=== PATIENT | female | born 1990 | race Caucasian/White ===

== ENCOUNTER 2022-01-05 14:23 | Inpatient (IN) | payer BC ==
[~2022-01-05 14:23] MED LIST: Bupivacaine 0.25% 10 ML SDV ONE
[2022-01-05] MEDS: Lactated Ringers 1,000 ML IV SCH ×2 (15:45→16:23)
[2022-01-05] MEDS ORDERED: ePHEDrine 50 MG/ML SDV IVPUSH PRN (16:00)
[2022-01-05] MEDS ORDERED: Nalbuphine HCl 10 MG/ 1ML Amp IVPUSH PRN (16:00)
[2022-01-05] MEDS ORDERED: diphenhydrAMINE 50 MG/ML SDV IVPUSH PRN (16:00)
[2022-01-05] MEDS ORDERED: fentaNYL 100 MCG/2 ML SDV EPIDUR PRN (16:00)
[2022-01-05] MEDS ORDERED: Bupivacaine/fentaNYL/NS 100 ML Bag EPIDUR PRN (16:00)
[2022-01-05] MEDS ORDERED: Sodium Chloride 0.9% 10 ML Syringe FLUSH PRN (16:00)
[2022-01-05] MEDS ORDERED: Lidocaine 1% 50 ML MDV INJECT PRN (16:00)
[2022-01-05] MEDS ORDERED: Oxytocin/Lactated Ringers 10 UNIT/1,000 ML BAG IV SCH ×2 (16:00)
[2022-01-05] MEDS ORDERED: Ondansetron 4 MG/2 ML SDV IVPUSH PRN (16:00)
[2022-01-05] MEDS ORDERED: Sodium Chloride 0.9% 10 ML Syringe FLUSH SCH (21:00)
[2022-01-05] MEDS ORDERED: Docusate Sodium 100 MG Cap PO PRN (22:17)
[2022-01-05] MEDS ORDERED: Witch Hazel Medicated Pads 40/Jar TOP PRN (22:17)
[2022-01-05] MEDS ORDERED: Benzocaine/Menthol 20%-0.5% Spray 78 GM Cannister TOP PRN (22:17)
[2022-01-05] MEDS ORDERED: Acetaminophen 325 MG Tab PO PRN (22:17)
[2022-01-05] MEDS: Ibuprofen 600 MG Tab PO PRN (22:33)
[2022-01-06] MEDS: Ibuprofen 600 MG Tab PO PRN ×2 (08:19→20:36)
== END 2022-01-07 10:17 | disposition home or self-care (01) | DRG 560 ==
LOC: JD.OBCHECK 14:23 → JD.OB 14:23 → JD.OBCHECK 15:26 → JD.OB 16:03 → OBSVTOIN 21:13 → JD.OB 21:14
PROVIDERS: ADMIT Obstetrics & Gynecology; ATTEND Obstetrics & Gynecology
PROC: 10E0XZZ Delivery of Products of Conception, External Approach (ICD-10-PCS; principal; 2022-01-05)
PROC: 0KQM0ZZ Repair Perineum Muscle, Open Approach (ICD-10-PCS; 2022-01-05)
PROC: 3E0R3BZ Introduction of Anesthetic Agent into Spinal Canal, Percutaneous Approach (ICD-10-PCS; 2022-01-05)
PROC: 00HU33Z Insertion of Infusion Device into Spinal Canal, Percutaneous Approach (ICD-10-PCS; 2022-01-05)
DX: O99.62 Diseases of the digestive system complicating childbirth (principal); Z37.0 Single live birth; K21.9 Gastro-esophageal reflux disease without esophagitis; O99.214 Obesity complicating childbirth; O70.1 Second degree perineal laceration during delivery; Z3A.39 39 weeks gestation of pregnancy
CPT/HCPCS: 36415; 51701; 59025; 59409; 85025; 86592; 86850; 86900; 86901; A9270-GY; J2590; J3010; J3490; J7120

== ENCOUNTER 2023-02-25 20:39 | Inpatient (IN) | payer BC ==
[2023-02-25] MEDS ORDERED: Nalbuphine HCl 10 MG/ 1ML Amp IVPUSH PRN (20:42)
[2023-02-25] MEDS ORDERED: Lidocaine 1% 50 ML MDV INJECT ONE (20:42)
[2023-02-25] MEDS ORDERED: Sodium Chloride 0.9% 10 ML Syringe FLUSH PRN (20:42)
[2023-02-25] MEDS ORDERED: Lactated Ringers 1,000 ML IV SCH (20:45)
[2023-02-25] MEDS ORDERED: Oxytocin/Lactated Ringers 10 UNIT/1,000 ML BAG IV SCH ×2 (20:45→22:06)
[2023-02-25 20:59] LABS: BASOPHILS ABSOLUTE AUTO 0.1 K/mm3 (0.0-0.2); BASOPHILS PERCENT AUTO 0.3 % (0.0-1.0); EOSINOPHILS PERCENT AUTO 0.1 % (0.0-6.0); HEMATOCRIT 38.7 % (37.0-47.0); HEMOGLOBIN 13.2 gm/dl (12.0-16.0); IMMATURE GRAN ABSOLUTE AUTO 0.17 K/mm3 (0.00-0.05); IMMATURE GRAN PERCENT AUTO 0.8 % (0.0-0.4); LYMPHOCYTES ABSOLUTE AUTO 1.7 K/mm3 (1.0-4.8); LYMPHOCYTES PERCENT AUTO 8.4 % (24.0-44.0); MEAN CORPUSCULAR HEMOGLOBIN 31.2 pg (28.0-32.0); MEAN CORPUSCULAR HGB CONC 34.1 g/dl (32.0-36.0); MEAN CORPUSCULAR VOLUME 91.5 fl (83.0-99.0); MEAN PLATELET VOLUME 10.6 fl (9.4-12.3); MONOCYTES ABSOLUTE AUTO 1.3 K/mm3 (0.0-0.8); MONOCYTES PERCENT AUTO 6.2 % (0.0-8.0); NEUTROPHILS ABSOLUTE AUTO 17.3 K/mm3 (1.8-7.7); NEUTROPHILS PERCENT AUTO 84.2 % (41.0-71.0); PLATELET COUNT,PLT 228 K/mm3 (150-400); RED BLOOD CELL COUNT 4.23 M/mm3 (4.10-5.30); WHITE BLOOD CELL COUNT,WBC 20.53 K/mm3 (3.9-11.3)
[2023-02-25] MEDS ORDERED: Sodium Chloride 0.9% 10 ML Syringe FLUSH SCH (21:00)
[2023-02-25] MEDS ORDERED: Hydrocortisone Acetate 25 MG Supp RECTAL PRN (22:06)
[2023-02-25] MEDS ORDERED: Magnesium Hydroxide 400 MG/5 ML Susp 30 ML Cup PO PRN (22:06)
[2023-02-25] MEDS ORDERED: Witch Hazel Medicated Pads 40/Jar TOP PRN (22:06)
[2023-02-25] MEDS ORDERED: Benzocaine/Menthol 20%-0.5% Spray 78 GM Cannister TOP PRN (22:06)
[2023-02-25] MEDS ORDERED: Ibuprofen 600 MG Tab PO PRN (22:06)
[2023-02-25] MEDS ORDERED: Docusate Sodium 100 MG Cap PO PRN (22:06)
[2023-02-26] MEDS: Acetaminophen 325 MG Tab PO PRN ×2 (00:09→08:38)
[2023-02-26] MEDS: Prenatal Multivitamin with Calcium/Folic Acid/Iron Tab PO SCH (08:38)
[2023-02-27] MEDS: Prenatal Multivitamin with Calcium/Folic Acid/Iron Tab PO SCH (10:33)
== END 2023-02-27 12:06 | disposition home or self-care (01) | DRG 560 ==
LOC: JD.OBCHECK 20:39 → JD.OB 20:56 → OBSVTOIN 22:18 → JD.OB 22:19
PROVIDERS: ADMIT Obstetrics & Gynecology; ATTEND Obstetrics & Gynecology
PROC: 10E0XZZ Delivery of Products of Conception, External Approach (ICD-10-PCS; principal; 2023-02-25)
PROC: 0KQM0ZZ Repair Perineum Muscle, Open Approach (ICD-10-PCS; 2023-02-25)
PROC: 3E033VJ Introduction of Other Hormone into Peripheral Vein, Percutaneous Approach (ICD-10-PCS; 2023-02-25)
DX: O62.3 Precipitate labor (principal); O70.1 Second degree perineal laceration during delivery; O69.81X0 Labor and delivery complicated by cord around neck, without compression, not applicable or unspecified; O26.893 Other specified pregnancy related conditions, third trimester; O42.02 Full-term premature rupture of membranes, onset of labor within 24 hours of rupture; O99.214 Obesity complicating childbirth; Z88.0 Allergy status to penicillin; Z3A.38 38 weeks gestation of pregnancy; Z37.0 Single live birth; Z67.41 Type O blood, Rh negative
CPT/HCPCS: 36415; 59409; 85025; 86592; A9270-GY; J2001; J2590